=== PATIENT | male | born 1980 | race Caucasian/White ===

== ENCOUNTER 2016-11-14 20:18 | Inpatient (IN) | payer MEDICAID ==
[~2016-11-14] VITALS: Ht 167.6 cm; Wt 96.2 kg
[~2016-11-14 20:18] MED LIST: LORA1TAB PO
[2016-11-14] MEDS ORDERED: ONDANSETRON 4 MG INJ IV STA (20:35)
[2016-11-14] MEDS ORDERED: ASPIRIN 325 MG TAB PO STA (20:35)
[2016-11-14] MEDS ORDERED: NITROGLYCERIN 2% 1 GM OINT PKT TD STA (20:35)
[2016-11-14] MEDS ORDERED: morphine 4 MG/ML VIAL IV STA (20:35)
--- NOTE | 2016-11-14 20:46 | ERA ---
ER Documentation Chief Complaint Date/Time DATE: 11/14/16 TIME: 20:42 Chief Complaint LEFT CHEST PAIN RADIATING TO BACK X 2 HRS WITH GRADUAL ONSET. HPI 36-year-old male who presents to the emergency room with left-sided chest pain that he describes as squeezing and pressure-like radiating to the left shoulder. He denies any central back pain. He describes gradual onset for several hours. No associated shortness of breath or pleuritic pain. No numbness or tingling or paresthesias. The patient states that he drinks alcohol but does not have a history of cardiac disease or family history of early cardiac disease. EKG at triage was abnormal and the patient was taken directly to room 1. ROS All systems reviewed and are negative except as per history of present illness. Medications Home Meds Reported Medications Lorazepam* (Lorazepam*) 1 Mg Tablet, 1 MG PO Q8 Y for ANXIETY, TAB 03/17/15 PMhx/Soc History of Surgery: No Anesthesia Reaction: No Hx Neurological Disorder: No Hx Respiratory Disorders: No Hx Cardiac Disorders: No Hx Psychiatric Problems: No Hx Miscellaneous Medical Probl: Yes (anxiety) Hx Alcohol Use: No Hx Substance Use: No Hx Tobacco Use: No FmHx Family History: No diabetes Physical Exam Vitals Vital Signs Date Time Temp Pulse Resp B/P Pulse Ox O2 Delivery O2 Flow Rate FiO2 11/14/16 22:39 98.6 80 16 105/76 Room Air 11/14/16 20:46 98.4 85 16 125/83 98 Room Air 11/14/16 20:20 96.2 89 22 124/92 97 Physical Exam General: Well developed, well nourished, no acute distress Head: Normocephalic, atraumatic. Eyes: Pupils equally reactive, EOM intact ENT: Moist mucous membranes Neck: Supple, no lymphadenopathy Respiratory: Lungs clear bilaterally, no distress Cardiovascular: RRR, no murmurs, rubs, or gallops Abdominal: Soft, non-tender, non-distended, no peritoneal signs : Deferred MSK: No edema, no unilateral swelling, 5/5 strength, no pulse deficits Neurologic: Alert and oriented, moving all extremities, normal speech, no focal weakness, no cerebellar signs Skin: No rash Psych: Normal mood Result Diagram: 6/4/17 2042 6/4/17 2042 Results 24 hrs Laboratory Tests Test 11/14/16 20:42 White Blood Count 10.010^3/ul Red Blood Count 4.8310^6/ul Hemoglobin 14.4g/dl Hematocrit 41.8% Mean Corpuscular Volume 86.5fl Mean Corpuscular Hemoglobin 29.8pg Mean Corpuscular Hemoglobin Concent 34.4g/dl Red Cell Distribution Width 13.2% Platelet Count 27969^3/UL Mean Platelet Volume 9.7fl Neutrophils % 63.9% Lymphocytes % 27.8% Monocytes % 6.4% Eosinophils % 1.3% Basophils % 0.3% Nucleated Red Blood Cells % 0.0/100WBC Neutrophils # 6.410^3/ul Lymphocytes # 2.810^3/ul Monocytes # 0.610^3/ul Eosinophils # 0.110^3/ul Basophils # 0.010^3/ul Nucleated Red Blood Cells # 0.010^3/ul Prothrombin Time 12.7Sec Prothrombin Time Ratio 1.0 INR International Normalized Ratio 0.95 Activated Partial Thromboplast Time 30.5Sec Sodium Level 139mmol/L Potassium Level 4.0mmol/L Chloride Level 104mmol/L Carbon Dioxide Level 24mmol/L Anion Gap 15 Blood Urea Nitrogen 16mg/dl Creatinine 0.93mg/dl Glucose Level 97mg/dl Calcium Level 9.6mg/dl Troponin I < 0.012ng/ml Current Medications Medications (Trade) Dose Ordered Sig/Jenaro Route PRN Reason Start Time Stop Time Status Last Admin Dose Admin Aspirin (Aspirin) 325 mg ONCE STAT PO 11/14/16 20:35 11/14/16 20:36 DC 11/14/16 20:35 Nitroglycerin (Nitroglycerin 2% Oint) 1 inch ONCE STAT TD 11/14/16 20:35 11/14/16 20:36 DC 11/14/16 20:56 Morphine Sulfate (morphine) 4 mg ONCE STAT IV 11/14/16 20:35 11/14/16 20:36 DC 11/14/16 20:56 Ondansetron HCl (Zofran Inj) 4 mg ONCE STAT IV 11/14/16 20:35 11/14/16 20:36 DC 11/14/16 20:56 IV Flush 10 ml 10 ml STK-MED ONCE .ROUTE 11/14/16 22:06 11/14/16 22:07 DC Sodium Chloride 100 ml @ ud STK-MED ONCE .ROUTE 11/14/16 22:06 11/14/16 22:07 DC Iohexol (Omnipaque) 100 ml @ ud STK-MED ONCE .ROUTE 11/14/16 22:06 11/14/16 22:07 DC Ondansetron HCl (Zofran Inj) 4 mg ER BRIDGE PRN IV NAUSEA AND/OR VOMITING 11/14/16 23:00 11/15/16 22:59 Acetaminophen (Tylenol Tab) 650 mg ER BRIDGE PRN PO MILD PAIN/FEVER 11/14/16 23:00 11/15/16 22:59 Procedures/MDM EKG, MONITORS, & DIAGNOSTIC IMAGING: EKG: I reviewed and interpreted a 12-lead EKG. Rhythm: Normal sinus rhythm Ectopy: None Intervals: No abnormalities ST segments: No elevations or depressions T waves: Significant T-wave inversion in lead II and III no reciprocal changes Repeat EKG: EKG: I reviewed and interpreted a 12-lead EKG. Rhythm: Normal sinus rhythm Ectopy: None Intervals: No abnormalities ST segments: No elevations or depressions T waves: Significant T-wave inversion in lead II and III, no reciprocal changes Chest x-ray: I reviewed and interpreted a 1 view of the chest Mediastinum: No enlargement Cardiac silhouette: No cardiomegaly Airspace: Clear lung johnston bilaterally without evidence of pneumothorax Bones: No evidence of fracture CTA chest: Negative for dissection or PE LAB INTERPRETATION: Negative troponin MEDICAL DECISION MAKING: The patient's history, physical exam and clinical presentation is concerning for possible cardiogenic etiology and acute coronary syndrome. The patient did have an abnormal EKG at triage that the machine read as meet STEMI criteria. However, the patient's EKG was not consistent with ST elevation myocardial infarction. Although, the patient did have significant T-wave inversion in the inferior leads. This is nonspecific however I cannot rule out cardiac process. The patient also has a back pain component but has no significant risk factors for dissection. However, cardiac ischemia would be unlikely in this otherwise healthy 36-year-old male. Therefore a CTA of the chest will be ordered. Based on the patient's clinical exam and history and risk factors, I have a much lower clinical concern for pulmonary embolism, acute aortic dissection, pneumothorax, pneumonia, cardiac tamponade HEART Score: 3 MACE Rate: 1.7% Shared Decision Making: We had a conversation regarding risk stratification, MACE rate, and the risks, benefits, alternatives of disposition planning options. Disposition planning: Given the patient's abnormal EKG and presentation of chest pain I would strongly recommend hospitalization. ER COURSE: Nitroglycerin and morphine provided. Aspirin held until negative CT. Pain improved and now asymptomatic. I kept the patient and/or family informed of laboratory and diagnostic imaging results throughout the emergency room course. DISPOSITION PLAN: Telemetry admission for abnormal EKG and chest pain to rule out acute coronary syndrome CONSULTATION: Accepting care team and consultations: I discussed the current laboratory data, diagnostic imaging and emergency care provided. Admitting team: Dr. Platt Admitting team indication: Insurance directed Departure Diagnosis: Primary Impression: Chest pain Qualified Code: R07.9 - Chest pain, unspecified type Condition: Stable FATOU JUAREZ MD Nov 14, 2016 20:46
[2016-11-14 20:52] LABS: ADD SCAN DIFF NO
[2016-11-14 20:53] LABS: BASOPHILS % 0.3 % (0.0-2.0); EOSINOPHILS # 0.1 10^3/ul (0.0-0.5); EOSINOPHILS % 1.3 % (0.0-7.0); HEMATOCRIT 41.8 % (42.0-52.0); HEMOGLOBIN 14.4 g/dl (14.0-18.0); LYMPHOCYTES # 2.8 10^3/ul (0.8-2.9); LYMPHOCYTES % 27.8 % (15.0-51.0); MEAN CORPUSCULAR HEMOGLOBIN 29.8 pg (29.0-33.0); MEAN CORPUSCULAR HGB CONC 34.4 g/dl (32.0-37.0); MEAN CORPUSCULAR VOLUME 86.5 fl (82.0-101.0); MEAN PLATELET VOLUME 9.7 fl (7.4-10.4); MONOCYTE # 0.6 10^3/ul (0.3-0.9); MONOCYTES % 6.4 % (0.0-11.0); NEUTROPHIL # 6.4 10^3/ul (1.6-7.5); NEUTROPHILS % 63.9 % (39.0-77.0); PLATELET COUNT 262 10^3/UL (140-415); RED BLOOD COUNT 4.83 10^6/ul (4.70-6.10); RED CELL DISTRIBUTION WIDTH 13.2 % (11.5-14.5)
[2016-11-14 21:10] LABS: INR 0.95; PARTIAL THROMBOPLASTIN TIME 30.5 Sec (25.0-35.0); PROTIME 12.7 Sec (12.2-14.2)
[2016-11-14 21:13] LABS: ANION GAP 15 (8-16); BLOOD UREA NITROGEN 16 mg/dl (7-20); CALCIUM 9.6 mg/dl (8.4-10.2); CARBON DIOXIDE 24 mmol/L (21-31); CHLORIDE 104 mmol/L (97-110); CREATININE 0.93 mg/dl (0.61-1.24); GLUCOSE 97 mg/dl (70-220); SODIUM 139 mmol/L (135-144)
[2016-11-14 21:24] LABS: TROPONIN-I < 0.012 ng/ml (0.00-0.12)
[2016-11-14] MEDS ORDERED: SOD CHLORIDE 0.9% 100 ML ONE (22:06)
[2016-11-14] MEDS ORDERED: IOHEXOL 100 ML ONE (22:06)
--- NOTE | 2016-11-14 22:40 | RADRPT ---
PROCEDURE: Chest. CLINICAL INDICATION: Chest pain. TECHNIQUE: Single frontal view of the chest was obtained. COMPARISON: 10/05/2015. FINDINGS: The cardiac silhouette is within normal limits. The aortic arch is unremarkable. There is no focal consolidation, vascular congestion or pleural effusion. There is no pneumothorax. IMPRESSION: No evidence for active cardiopulmonary disease. .Diego Solano MD, Date Time Electronically viewed and signed by .Diego Solano MD, on 11/14/2016 22:40 .T/
--- NOTE | 2016-11-14 22:53 | RADRPT ---
PROCEDURE: CT angiography of the chest with contrast. CLINICAL INDICATION: Chest pain, evaluate for pulmonary embolism TECHNIQUE: Contrast enhanced angiography of the chest was performed on a high resolution multi det richard scanner during the administration of intravenous contrast. Multiplanar reconstructions, three- dimensional reconstructions, as well as maximal intensity projection images are produced and reviewe d. One or more of the following dose reduction techniques were used: Automated exposure control; Adj ustment of the mA and/or kV according to patient size; Use of iterative reconstruction technique. CT DI = 17, 112 mGy. DLP = 678 mGy-cm. CONTRAST: 100 ml Omnipaque 350 administered without adverse event. COMPARISON: Chest radiograph 11/14/2016 FINDINGS: Evaluation is degraded due to patient respiratory motion artifact and loss of intravenous access mid injection. No evidence of central pulmonary embolism. Segmental and subsegmental branches are not adequately enhanced to exclude the presence of pulmonary emboli. Ventilation-perfusion scanning ma y be useful for further evaluation. Pulmonary artery configuration: Normal caliber. Degraded enhancement with peak Hounsfield units of 165. Lung parenchyma: No acute air space infiltrates. Mild dependent atelectasis in the lung bases. Airways: Mild peribronchial thickening suggestive of small airways disease. Aorta: Ungated examination demonstrates normal caliber. Bovine branching pattern is noted. No eviden ce of intramural hematoma or dissection. No evidence of significant atherosclerotic changes. Thoracic veins: Normal appearance for the phase of enhancement. Heart: Ungated examination demonstrates no significant abnormality. Mediastinum: Normal. Lymph nodes: No mediastinal, hilar, or axillary lymphadenopathy Osseous structures: Intact. Visualized upper abdomen: No abnormalities IMPRESSION: Evaluation is degraded due to patient respiratory motion artifact and loss of intravenous access mid injection. No evidence of central pulmonary embolism. Segmental and subsegmental branches are not adequately enhanced to exclude the presence of pulmonary emboli. Ventilation-perfusion scanning ma y be useful for further evaluation. No acute air space infiltrates or acute osseous abnormalities. RPTAT: AADD .Noel Hernandez MD, Date Time Electronically viewed and signed by .Noel Hernandez MD, on 11/14/2016 22:53 .B/
[2016-11-14] MEDS ORDERED: ONDANSETRON 4 MG INJ IV PRN (23:00)
[2016-11-14 23:26] VITALS: TEMP 98.3
[2016-11-15] VITALS (12 sets, daily range): BP systolic 105–137; BP diastolic 58–75; PULSE 62–99; RESP 16–18; Ht 167.6 cm; Wt 96.2 kg
[2016-11-15] MEDS ORDERED: NITROGLYCERIN (SL) 0.4 MG TAB SL PRN (00:30)
[2016-11-15] MEDS ORDERED: ACETAMINOPHEN 325 MG TAB PO PRN (00:30)
[2016-11-15] MEDS ORDERED: morphine 2 MG INJ IV PRN (00:30)
[2016-11-15] MEDS: ACETAMINOPHEN 325 MG TAB PO PRN ×2 (02:31→02:32)
[2016-11-15 04:13] LABS: ADD SCAN DIFF NO
[2016-11-15 04:16] LABS: BASOPHILS % 0.4 % (0.0-2.0); EOSINOPHILS # 0.2 10^3/ul (0.0-0.5); EOSINOPHILS % 2.7 % (0.0-7.0); HEMATOCRIT 37.7 % (42.0-52.0); HEMOGLOBIN 13.2 g/dl (14.0-18.0); LYMPHOCYTES # 3.2 10^3/ul (0.8-2.9); LYMPHOCYTES % 42.5 % (15.0-51.0); MEAN CORPUSCULAR HEMOGLOBIN 30.5 pg (29.0-33.0); MEAN CORPUSCULAR VOLUME 87.1 fl (82.0-101.0); MEAN PLATELET VOLUME 9.5 fl (7.4-10.4); MONOCYTE # 0.5 10^3/ul (0.3-0.9); MONOCYTES % 7.2 % (0.0-11.0); NEUTROPHIL # 3.5 10^3/ul (1.6-7.5); NEUTROPHILS % 46.8 % (39.0-77.0); PLATELET COUNT 235 10^3/UL (140-415); RED BLOOD COUNT 4.33 10^6/ul (4.70-6.10); RED CELL DISTRIBUTION WIDTH 13.2 % (11.5-14.5); WHITE BLOOD COUNT 7.5 10^3/ul (4.8-10.8)
[2016-11-15 04:33] LABS: ALBUMIN 4.4 g/dl (3.3-4.9); ALBUMIN/GLOBULIN RATIO 1.57; BILIRUBIN,INDIRECT 0.4 mg/dl (0-1.1); BILIRUBIN,TOTAL 0.4 mg/dl (0.2-1.3); CALCIUM 9.2 mg/dl (8.4-10.2); CREATININE 0.88 mg/dl (0.61-1.24); PHOSPHORUS 4.9 mg/dl (2.5-4.9); POTASSIUM 4.3 mmol/L (3.5-5.1); TOTAL PROTEIN 7.2 g/dl (6.1-8.1)
[2016-11-15 04:34] LABS: CHOL/HDL RATIO 4.2 RATIO
[2016-11-15 04:39] LABS: CREATINE KINASE 217 IU/L (23-200)
[2016-11-15 04:59] LABS: CK-MB 1.08 ng/ml (0.0-2.4); TROPONIN-I < 0.012 ng/ml (0.00-0.12)
[2016-11-15 05:03] LABS: THYROID STIMULATING HORMONE 4.3 MIU/L (0.465-4.680)
[2016-11-15] MEDS: ENOXAPARIN 40 MG/0.4 ML SYG SC SCH ×2 (06:31→21:45)
--- NOTE | 2016-11-15 07:45 | HP ---
DATE OF ADMISSION: 11/14/2016 TIME SEEN: 23:00 CHIEF COMPLAINT: Chest pain. HISTORY OF PRESENT ILLNESS: The patient is a 36-year-old male with a history of a history of anxiet y and substance abuse who presented to the emergency department with chief complaint of chest pain. Chest pain is mainly left-sided, was radiating to his upper back and left shoulder and started bipin ral hours prior to arrival. He denied any associated shortness of breath, nausea, vomiting or diaph oresis. When he presented to the ER, his vitals were stable. Initial EKG shows T-wave inversion in leads 2 and 3 with reciprocal change. Laboratory value shows that his first troponin is negative and CBC an d BMP are unremarkable. Chest x-ray shows no evidence of acute cardiopulmonary disease. CT pulmona ry angiogram shows no PE. He was given aspirin, nitro, morphine, Zofran as well as IV fluid while henny reyez was in the ER. The patient was last seen here in the ER a year ago after he presented with left-sided pressure-like chest pain as well as generalized body aches. At that time, he reports that he has been drinking a lcohol and also doing cocaine again. REVIEW OF SYSTEMS: A 12-point review of systems was performed and negative except as mentioned in H PI. PAST MEDICAL HISTORY: Anxiety. PAST SURGICAL HISTORY: Denies. SOCIAL HISTORY: Positive for alcohol as well as cocaine. Denied smoking cigarettes. ALLERGIES: NO KNOWN DRUG ALLERGIES. HOME MEDICATIONS: Ativan. PHYSICAL EXAMINATION: VITAL SIGNS: Stable. GENERAL: No acute distress, answering questions appropriately, able to speak in full sentences. HEENT: Normocephalic, atraumatic. Extraocular muscles intact. No scleral icterus. CARDIOVASCULAR: Regular rate and rhythm with no extra sounds. LUNGS: Clear. ABDOMEN: Soft, nontender, nondistended. Positive bowel sounds. EXTREMITIES: No edema. NEUROLOGIC: No focal deficit. LABORATORY DATA: CBC and BMP are unremarkable. First troponin is negative. IMAGING: Chest x-ray: No acute disease. CT pulmonary angiogram: No pulmonary embolus. IMPRESSION: 1. Chest pain with abnormal EKG. 2. History of anxiety. 3. History of alcohol and cocaine abuse. PLAN: Continue telemetry monitoring. We will trend his troponin. We will repeat EKG in the [facility]. We will obtain a 2D echo and place a cardiology consult. He will be placed on oxygen and will p rovide as needed nitro and morphine. His blood pressure at times has been in the low 100s and heart rate has been as low as 62 and as such, would not allow a beta nneka. Also, given his history of cocaine use I am reluctant to start him on a beta nneka, but will probably do so with a lower dos e if his vitals allow. Will check A1c, fasting lipids, and also urine toxicology screen. Further workup and management per clinical course. Dictated By: CHINMAY MARINO/NOELLE Conf#: [id number] DID#: [id number]
[2016-11-15] MEDS: METOPROLOL 25 MG TAB PO SCH ×2 (08:29→21:51)
[2016-11-15 10:56] LABS: CREATINE KINASE 218 IU/L (23-200)
[2016-11-15 11:11] LABS: CK-MB 0.97 ng/ml (0.0-2.4); TROPONIN-I < 0.012 ng/ml (0.00-0.12)
[2016-11-15 12:44] LABS: BARBITURATES Negative (NEGATIVE); BENZODIAZEPINES Negative (NEGATIVE); CANNABINOIDS Negative (NEGATIVE); COCAINE Positive (NEGATIVE); OPIATES Positive (NEGATIVE)
--- NOTE | 2016-11-15 15:44 | PN ---
Date/Time of Note Date/Time of Note DATE: 11/15/16 TIME: 15:41 Assessment/Plan VTE Prophylaxis VTE Prophylaxis Intervention: LMWH Lines/Catheters IV Catheter Type (from Nrs): Saline Lock Urinary Cath still in place: No Assessment/Plan Assessment/Plan 1. Chest pain with abnormal EKG., negative troponin, cardiology consultation 2. History of anxiety. 3. History of alcohol and cocaine abuse. 4. Hypertriglyceridemia Subjective 24 Hr Interval Summary Free Text/Dictation no chest pain or shortness of breath Exam/Review of Systems Vital Signs Vitals Vital Signs Date Time Temp Pulse Resp B/P Pulse Ox O2 Delivery O2 Flow Rate FiO2 11/15/16 13:03 65 11/15/16 11:21 98.7 18 105/58 96 11/14/16 23:26 Room Air Intake and Output 11/14/16 11/14/16 11/15/16 15:00 23:00 07:00 Intake Total 250 ml Balance 250 ml Exam Constitutional: alert, oriented, well developed Psych: nl mood/affect, no complaints Head: atraumatic, normocephalic Eyes: EOMI, PERRL, nl conjunctiva, nl lids ENMT: nl external ears & nose, nl lips & teeth, nl nasal mucosa & septum Neck: non-tender, supple Respiratory: clear to auscultation, normal air movement, No congested cough, No crackles/rales, No diminished breath sounds, No intercostal retraction, No labored breathing, No other, No respirations, No tactile fremitus, No wheezing Cardiovascular: nl pulses, regular rate and rhythm, No S3, No S4, No bruits, No diastolic murmur, No edema, No gallop, No irregular rhythm, No jugular venous distention (JVD), No murmurs/extra sounds, No other, No rub, No systolic murmur Gastrointestinal: nl liver, spleen, non-tender, soft, No ascites, No bowel sounds, No distended, No firm, No hepatomegaly, No mass , No other, No rebound or guarding, No splenomegaly, No surgical scars, No tender Musculoskeletal: nl extremities to inspection Extremities: normal pulses, No calf tenderness, No clubbing, No cyanosis, No edema, No other, No palpable cord, No pitting pedal edema, No tenderness Neurological: [employer] II-XII intact, nl mental status, nl speech, nl strength Skin: nl turgor Lymph: nl lymph nodes Results Result Diagram: 11/15/16 0358 11/15/16 0358 Results 24 hrs Laboratory Tests Test 11/14/16 20:42 11/15/16 03:58 11/15/16 09:10 11/15/16 10:00 White Blood Count 10.0 7.5 # Red Blood Count 4.83 4.33 L Hemoglobin 14.4 13.2 L Hematocrit 41.8 L 37.7 L Mean Corpuscular Volume 86.5 87.1 Mean Corpuscular Hemoglobin 29.8 30.5 Mean Corpuscular Hemoglobin Concent 34.4 35.0 Red Cell Distribution Width 13.2 13.2 Platelet Count 262 235 Mean Platelet Volume 9.7 9.5 Neutrophils % 63.9 46.8 Lymphocytes % 27.8 42.5 Monocytes % 6.4 7.2 Eosinophils % 1.3 2.7 Basophils % 0.3 0.4 Nucleated Red Blood Cells % 0.0 0.0 Neutrophils # 6.4 3.5 Lymphocytes # 2.8 3.2 H Monocytes # 0.6 0.5 Eosinophils # 0.1 0.2 Basophils # 0.0 0.0 Nucleated Red Blood Cells # 0.0 0.0 Prothrombin Time 12.7 Prothrombin Time Ratio 1.0 INR International Normalized Ratio 0.95 Activated Partial Thromboplast Time 30.5 Sodium Level 139 140 Potassium Level 4.0 4.3 Chloride Level 104 105 Carbon Dioxide Level 24 25 Anion Gap 15 14 Blood Urea Nitrogen 16 16 Creatinine 0.93 0.88 Glucose Level 97 92 Calcium Level 9.6 9.2 Troponin I < 0.012 < 0.012 < 0.012 Hemoglobin A1c 5.8 Phosphorus Level 4.9 Magnesium Level 2.0 Total Bilirubin 0.4 Direct Bilirubin 0.00 Indirect Bilirubin 0.4 Aspartate Amino Transf (AST/SGOT) 47 H Alanine Aminotransferase (ALT/SGPT) 63 Alkaline Phosphatase 83 Creatine Kinase 217 H 218 H Creatine Kinase Index 0.5 0.4 Creatinine Kinase MB (Mass) 1.08 0.97 Total Protein 7.2 Albumin 4.4 Globulin 2.80 Albumin/Globulin Ratio 1.57 Triglycerides Level 346 H Cholesterol Level 206 H LDL Cholesterol, Calculated 88 HDL Cholesterol 49 Cholesterol/HDL Ratio 4.2 Thyroid Stimulating Hormone (TSH) 4.300 Urine Opiates Screen Positive Urine Barbiturates Negative Urine Amphetamines Screen Negative Urine Benzodiazepines Screen Negative Urine Cocaine Screen Positive Urine Cannabinoids Negative Medications Medications Current Medications Acetaminophen (Tylenol Tab) 650 mg Q6H PRN PO PAIN AND OR ELEVATED TEMP Last administered on 11/15/16 11:03; Admin Dose 650 MG; Start 11/15/16 at 00:30 Metoprolol Tartrate (Lopressor) 12.5 mg BID PO ; Start 11/15/16 at 09:00 Nitroglycerin (Nitroglycerin (Sl Tab) 0.4 Mg) 1 tab Q5M PRN SL ANGINA; Start at 00:30 Morphine Sulfate (morphine) 2 mg Q4H PRN IV PAIN; Start 11/15/16 at 00:30 Enoxaparin Sodium (Lovenox) 40 mg DAILY SC Last administered on 11/15/16 06:31 ; Admin Dose 40 MG; Start 11/15/16 at 00:30 CARON LAU MD Nov 15, 2016 15:44
--- NOTE | 2016-11-15 18:12 | RADRPT ---
Echocardiogram Report Patient Name: HAFSA HOWARD Gender: Male Date: 1980 Study Date: 15-Nov-2016 Customer Experience Associate: Amanda Anderson [facility] Location: [id number] Ref. Physician: CHINMAY HARRIS Quality: Good Procedures: Transthoracic echocardiogram with complete 2D, M-Mode, and doppler examination. Indications: Chest Pain. 2D/M Mode Doppler Measurement Value Normal Ranges Measurement Value Normal Ranges LVIDd 2D 5.0 3.5 - 5.6 cm AV Peak Karson 1.3 m/sec LVIDs 2D 3.2 2.1 - 4.1 cm AV Peak PG 7.0 mmHg FS 2D 36.9 % LVOT Peak Krason 0.8 m/sec LVPWd 2D 0.9 0.6 - 1.1 cm LVOT Peak PG 3.0 mmHg IVSd 2D 0.9 0.6 - 1.1 cm MV E Peak Karson 0.7 m/sec IVS/LVPW 2D 0.9 MV A Peak Karson 0.6 m/sec AoR Diam 2D 3.1 2.0 - 3.7 cm MV E/A 1.2 LA/Ao 2D 1 0 - 1 MV Decel Time 215 msec EDV 2D 128.0 cm3 MV E/A 1.2 ESV 2D 32.2 cm3 TR Peak Karson 1.9 m/sec LA Dimen 2D 3.1 2.3 - 4.0 cm TR Peak PG 15.0 mmHg RVSP 23.0 mmHg Findings Left Ventricle: Normal left ventricular systolic function. Normal left ventricular cavity size. Normal left ventricular wall thickness. Ejection fraction is visually estimated at 55 %. Right Ventricle: Normal right ventricular size. Normal right ventricular systolic function. Left Atrium: The left atrium is normal in size. Right Atrium: The right atrium is normal in size. Mitral Valve: Normal appearance and function of the mitral valve with trace physiologic regurgitation. Aortic Valve: Normal appearance of the aortic valve. No significant aortic stenosis or insufficiency. Tricuspid Valve: Normal appearance of the tricuspid valve. Estimated peak PA systolic pressure 23 mmHg. There is trace tricuspid regurgitation. Pulmonic Valve: Normal pulmonic valve appearance. There is trace pulmonic regurgitation. Pericardium: Normal pericardium with no significant pericardial effusion. Aorta: Normal aortic root. IVC: Dilated IVC with respiratory collapse consistent with elevated right atrial pressure. Conclusions 1.Normal left ventricular systolic function. Normal left ventricular cavity size. Normal left ventricular wall thickness. Ejection fraction is visually estimated at 55 %. 2.Normal appearance and function of the mitral valve with trace physiologic regurgitation. 3.Normal appearance of the aortic valve. No significant aortic stenosis or insufficiency. 4.Normal appearance of the tricuspid valve. Estimated peak PA systolic pressure 23 mmHg. There is trace tricuspid regurgitation. Electronically Signed By: Bruce Waldrop 15-Nov-2016 18:11:26 -0700 Patient Name: HAFSA HOWARD Study Date: 15-Nov-[id number]
[2016-11-15] MEDS: ASPIRIN (EC) 81 MG TAB PO SCH (21:44)
[2016-11-16] VITALS (8 sets, daily range): BP systolic 113–132; BP diastolic 70–77; PULSE 54–62; RESP 20
--- NOTE | 2016-11-16 07:08 | CONS ---
DATE OF ADMISSION: 11/14/2016 DATE OF CONSULTATION: 11/15/2016 TYPE OF CONSULTATION: Cardiology. REFERRING PHYSICIAN: ____. REASON FOR CONSULTATION: Chest pain, abnormal EKG. CHIEF COMPLAINT: Chest pain. HISTORY OF PRESENT ILLNESS: Thank you for this referral. History obtained from the patient, review of the chart, from discussion and review. Discussed with the staff. This is a 36-year-old gentlem an with history of cocaine and alcohol abuse who came to emergency room with above complaint. Patidereje nt said he used cocaine last night. He had chest pain anteriorly mostly on the left side. Pressure like. Could not explain ____ to me. At this point, he has minimal chest discomfort, left. His ca rdiac enzymes are negative. 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 The p brynn said he had chest pain similar to 3 months ago, was seen at [facility]. He is not sure what kind of workup was done then, but it appears that he did not have a stress test done at that time. PAST MEDICAL HISTORY: As above plus anxiety. SOCIAL HISTORY: The patient does use drugs including cocaine. The patient also uses alcohol. Micheal es any tobacco use. FAMILY HISTORY: No reported coronary artery disease. ALLERGIES: NO REPORTED ALLERGIES. MEDICATIONS AT HOME: None. REVIEW OF SYSTEMS: As above mentioned, denied all other. PHYSICAL EXAMINATION: VITAL SIGNS: Temperature 98, heart rate of 63, blood pressure 126/75, respiration rate of 18, satur ating 98%. HEENT: Normocephalic, atraumatic. Pupils are equal. CARDIOVASCULAR: Regular rate and rhythm, systolic murmur. PULMONARY: With no wheezes or rhonchi. GASTROINTESTINAL: Soft, nontender. EXTREMITIES: Trivial edema. NEUROLOGIC: Awake and alert. DERMATOLOGIC: There are multiple tattoos. NEUROLOGIC: Awake, alert x3, nonfocal. PSYCHIATRIC: Calm, pleasant. LABORATORY: Sodium 140, potassium 4.3, BUN of 16, creatinine 0.88, glucose of 92. Cholesterol 206, triglycerides 346, LDL 88, HDL 49. TSH is 4.3. Troponin negative x3. EKG was personally reviewed , showed normal sinus rhythm, inferior infarct, age undetermined. Echocardiogram was personally rev iewed, showed suboptimal study, but appeared to have ejection fraction of probably preserved at abou t 50%. CT pulmonary angiogram of the chest shows no evidence of pulmonary embolus. ASSESSMENT AND PLAN: 1. Chest pain syndrome, rule acute coronary syndrome. 2. Cocaine use. 3. Dyslipidemia, high triglyceride levels. 4. Anxiety. 5. Abnormal EKG. RECOMMENDATIONS: Patient has been placed already on beta nneka and aspirin. I will order a CT co ronary angiogram to rule out significant obstructive coronary artery disease if the patient agrees t o stay. Dictated By: LATHA SMITH MD AV/NOELLE Conf#: [id number] DID#: [id number] CC: CARON LAU MD;*EndCC*
[2016-11-16 07:34] LABS: ALBUMIN 4.6 g/dl (3.3-4.9); ALBUMIN/GLOBULIN RATIO 1.53; BILIRUBIN,INDIRECT 0.3 mg/dl (0-1.1); BILIRUBIN,TOTAL 0.3 mg/dl (0.2-1.3); CALCIUM 8.9 mg/dl (8.4-10.2); CREATININE 0.89 mg/dl (0.61-1.24); POTASSIUM 4.3 mmol/L (3.5-5.1); TOTAL PROTEIN 7.6 g/dl (6.1-8.1)
[2016-11-16] MEDS: ASPIRIN (EC) 81 MG TAB PO SCH (08:05)
[2016-11-16] MEDS: METOPROLOL 25 MG TAB PO SCH (08:06)
[2016-11-16] MEDS: ENOXAPARIN 40 MG/0.4 ML SYG SC SCH (08:10)
[2016-11-16 09:55] LABS: CREATINE KINASE 140 IU/L (23-200)
[2016-11-16 10:09] LABS: CK-MB 0.47 ng/ml (0.0-2.4); TROPONIN-I < 0.012 ng/ml (0.00-0.12)
[2016-11-16] MEDS ORDERED: NITROGLYCERIN AEROSOL (4.9 GM) ONE (12:12)
[2016-11-16] MEDS ORDERED: IOHEXOL 350MG/ML 50 ML BTL ONE (12:20)
[2016-11-16] MEDS ORDERED: IOHEXOL 100 ML ONE (12:20)
[2016-11-16] MEDS ORDERED: SOD CHLORIDE 0.9% 100 ML ONE (12:20)
--- NOTE | 2016-11-16 14:30 | RADRPT ---
PROCEDURE: CTA OF THE HEART AND CORONARY ARTERIES WITH CONTRAST CT CALCIUM SCORE CLINICAL INDICATION: Chest pain COMPARISON: CT scan of the chest 11/14/2016 TECHNIQUE: CT calcium score performed without intravenous contrast. Multiphasic ECG-gated volumetri c acquisition from the ascending aorta to the diaphragm performed with intravenous contrast on a hig h-resolution multi detector scanner with multiphasic reconstructions. Multiplanar reconstructions, t hree-dimensional reconstructions, as well as maximal intensity projection images are produced and re viewed. One or more of the following dose reduction techniques were used: Automated exposure control ; Adjustment of the mA and/or kV according to patient size; Use of iterative reconstruction techniqu e; ECG dose modulation. CTDI = 8, 34, 75 mGy. DLP = 1520 mGy-cm. Stenosis classification of vessels greater than 1.5 mm in diameter: None0% Minimal1-24% Zlsf23-92% Wrcdxthm38-71% Hivsbs81-86% [id number]% (When a vessel appears focally occluded with distal reconstitution there may be trac e patency which is below the resolution of the examination or collateral pathways may exist.) CONTRAST: 100 mL of Omnipaque 350 intravenously without adverse event. FINDINGS: CORONARY CT ANGIOGRAM: Overall quality of the CT angiographic examination is excellent. Normal origins of the coronary arteries are present. The coronary artery system is right dominant. Total calcium score: 0 Right Coronary Artery: Widely patent without focal irregularity, mural plaque, or significant stenos is. The acute marginal branch enhances normally. Posterior descending and posterior lateral coronary artery branches are widely patent. Left Main Coronary Artery: Widely patent without focal irregularity, mural plaque, or significant st enosis. A small ramus intermedius branch is present which is widely patent. Left Anterior Descending Coronary Artery: Widely patent without focal irregularity, mural plaque, or significant stenosis. Visualized septal and diagonal branches: Widely patent without focal irregularity, mural plaque, or significant stenosis. Left Circumflex Coronary Artery: Widely patent without focal irregularity, mural plaque, or signific ant stenosis. Visualized obtuse marginal branches: Widely patent throughout, without focal significant stenosis. Normal appearance of the pericardium. No pericardial effusion. Normal appearing trileaflet aortic valve. Normal appearance of the mitral valve. Myocardial attenuation appears within normal limits. Left atrial appendage is well opacified. No evidence of intracardiac mass or thrombus. EXTRACARDIAC FINDINGS: Thoracic aorta: Normal caliber. Pulmonary vessels: Normal caliber pulmonary arteries. No evidence of central filling defect. Conven tional pulmonary venous return. Chest: Minimal linear opacity observed within the lingula appears improved from the previous examina tion. No mediastinal lymphadenopathy. Abdomen: Incidental imaging of the upper abdomen is unremarkable. IMPRESSION: Total calcium score: 0 Right Coronary Artery: Widely patent without focal irregularity, mural plaque, or significant stenos is. Left Main Coronary Artery: Widely patent without focal irregularity, mural plaque, or significant st enosis. Left Anterior Descending Coronary Artery: Widely patent without focal irregularity, mural plaque, or significant stenosis. Left Circumflex Coronary Artery: Widely patent without focal irregularity, mural plaque, or signific ant stenosis. RPTAT: AADD .Noel Hernandez MD, MD Date Time Electronically viewed and signed by .Noel Hernandez MD, on 11/16/2016 14:30 .B/
--- NOTE | 2016-11-16 15:02 | DS ---
Date/Time of Note Date/Time of Note DATE: 11/16/16 TIME: 14:53 Discharge Summary Admission/Discharge Info Admit Date/Time Nov 14, 2016 at 22:53 Discharge Date/Time Final Diagnosis 1. Chest pain, musculoskeletal, resolved 2. History of anxiety. 3. History of alcohol and cocaine abuse. 4. Hypertriglyceridemia, follow with PCP Patient Condition: Stable Procedures [place] [id number] Radiology Main Line: [phone] DIAGNOSTIC IMAGING REPORT Patient: HAFSA HOWARD : 1980 Age: 36 Sex: M MR #: [id number] DOS: 11/14/162042 Ordering MD: FATOU JUAREZ MD Location: E/R Room/Bed: PROCEDURE: CT angiography of the chest with contrast. CLINICAL INDICATION: Chest pain, evaluate for pulmonary embolism TECHNIQUE: Contrast enhanced angiography of the chest was performed on a high resolution multi detector scanner during the administration of intravenous contrast. Multiplanar reconstructions, three-dimensional reconstructions, as well as maximal intensity projection images are produced and reviewed. One or more of the following dose reduction techniques were used: Automated exposure control; Adjustment of the mA and/or kV according to patient size; Use of iterative reconstruction technique. CTDI = 17, 112 mGy. DLP = 678 mGy-cm. CONTRAST: 100 ml Omnipaque 350 administered without adverse event. COMPARISON: Chest radiograph 11/14/2016 FINDINGS: Evaluation is degraded due to patient respiratory motion artifact and loss of intravenous access mid injection. No evidence of central pulmonary embolism. Segmental and subsegmental branches are not adequately enhanced to exclude the presence of pulmonary emboli. Ventilation-perfusion scanning may be useful for further evaluation. Pulmonary artery configuration: Normal caliber. Degraded enhancement with peak Hounsfield units of 165. Lung parenchyma: No acute air space infiltrates. Mild dependent atelectasis in the lung bases. Airways: Mild peribronchial thickening suggestive of small airways disease. Aorta: Ungated examination demonstrates normal caliber. Bovine branching pattern is noted. No evidence of intramural hematoma or dissection. No evidence of significant atherosclerotic changes. Thoracic veins: Normal appearance for the phase of enhancement. Heart: Ungated examination demonstrates no significant abnormality. Mediastinum: Normal. Lymph nodes: No mediastinal, hilar, or axillary lymphadenopathy Osseous structures: Intact. Visualized upper abdomen: No abnormalities IMPRESSION: Evaluation is degraded due to patient respiratory motion artifact and loss of intravenous access mid injection. No evidence of central pulmonary embolism. Segmental and subsegmental branches are not adequately enhanced to exclude the presence of pulmonary emboli. Ventilation-perfusion scanning may be useful for further evaluation. No acute air space infiltrates or acute osseous abnormalities. RPTAT: AADD .Noel Hernandez MD, MD Date Time Electronically viewed and signed by .Noel Hernandez MD, on 11/14/2016 22:53 .[place] [id number] Radiology Main Line: [phone] DIAGNOSTIC IMAGING REPORT Patient: HAFSA HOWARD : 1980 Age: 36 Sex: M MR #: [id number] DOS: 11/16/16 0000 Ordering MD: LATHA SMITH [place] [facility] [place] [facility] PROCEDURE: CTA OF THE HEART AND CORONARY ARTERIES WITH CONTRAST CT CALCIUM SCORE CLINICAL INDICATION: Chest pain COMPARISON: CT scan of the chest 11/14/2016 TECHNIQUE: CT calcium score performed without intravenous contrast. Multiphasic ECG-gated volumetric acquisition from the ascending aorta to the diaphragm performed with intravenous contrast on a high-resolution multi detector scanner with multiphasic reconstructions. Multiplanar reconstructions, three-dimensional reconstructions, as well as maximal intensity projection images are produced and reviewed. One or more of the following dose reduction techniques were used: Automated exposure control; Adjustment of the mA and/or kV according to patient size; Use of iterative reconstruction technique; ECG dose modulation. CTDI = 8, 34, 75 mGy. DLP = 1520 mGy-cm. Stenosis classification of vessels greater than 1.5 mm in diameter: None 0% Minimal 1-24% Mild 25-49% Moderate 50-69% Severe 70-99% Occluded 100% (When a vessel appears focally occluded with distal reconstitution there may be trace patency which is below the resolution of the examination or collateral pathways may exist.) CONTRAST: 100 mL of Omnipaque 350 intravenously without adverse event. FINDINGS: CORONARY CT ANGIOGRAM: Overall quality of the CT angiographic examination is excellent. Normal origins of the coronary arteries are present. The coronary artery system is right dominant. Total calcium score: 0 Right Coronary Artery: Widely patent without focal irregularity, mural plaque, or significant stenosis. The acute marginal branch enhances normally. Posterior descending and posterior lateral coronary artery branches are widely patent. Left Main Coronary Artery: Widely patent without focal irregularity, mural plaque, or significant stenosis. A small ramus intermedius branch is present which is widely patent. Left Anterior Descending Coronary Artery: Widely patent without focal irregularity, mural plaque, or significant stenosis. Visualized septal and diagonal branches: Widely patent without focal irregularity, mural plaque, or significant stenosis. Left Circumflex Coronary Artery: Widely patent without focal irregularity, mural plaque, or significant stenosis. Visualized obtuse marginal branches: Widely patent throughout, without focal significant stenosis. Normal appearance of the pericardium. No pericardial effusion. Normal appearing trileaflet aortic valve. Normal appearance of the mitral valve. Myocardial attenuation appears within normal limits. Left atrial appendage is well opacified. No evidence of intracardiac mass or thrombus. EXTRACARDIAC FINDINGS: Thoracic aorta: Normal caliber. Pulmonary vessels: Normal caliber pulmonary arteries. No evidence of central filling defect. Conventional pulmonary venous return. Chest: Minimal linear opacity observed within the lingula appears improved from the previous examination. No mediastinal lymphadenopathy. Abdomen: Incidental imaging of the upper abdomen is unremarkable. IMPRESSION: Total calcium score: 0 Right Coronary Artery: Widely patent without focal irregularity, mural plaque, or significant stenosis. Left Main Coronary Artery: Widely patent without focal irregularity, mural plaque, or significant stenosis. Left Anterior Descending Coronary Artery: Widely patent without focal irregularity, mural plaque, or significant stenosis. Left Circumflex Coronary Artery: Widely patent without focal irregularity, mural plaque, or significant stenosis. RPTAT: AADD .Noel Hernandez MD, MD Date Time Electronically viewed and signed by .Noel Hernandez MD, on 11/16/2016 14:30 .B/ CC: LATHA SMITH MD Hospital Course The patient is a 36-year-old male with a history of a history of anxiety and substance abuse who presented to the emergency department with chief complaint of chest pain. Chest pain is mainly left-sided, was radiating to his upper back and left shoulder and started several hours prior to arrival. He denied any associated shortness of breath, nausea, vomiting or diaphoresis. Chest [pain resolved after admission. Troponin negative. Echocardiography unremarkable. Patient has a negative coronary CT angiography. Chest pain is considered noncardiac. Triglyceride is 346. Low TG diet and follow up with PCP to repeat TG in 2-4 weeks Home Meds Reported Medications Lorazepam* (Lorazepam*) 1 Mg Tablet, 1 MG PO Q8 Y for ANXIETY, TAB 03/17/15 Follow-up Plan follow up with PCP in 2 weeks to repeat Lipid profile Primary Care Provider Care Physician No Primary Pending Labs Laboratory Tests Test 11/16/16 06:35 Sodium Level 141mmol/L (135-144) Potassium Level 4.3mmol/L (3.5-5.1) Chloride Level 104mmol/L (97-110) Carbon Dioxide Level 28mmol/L (21-31) Anion Gap 13 (8-16) Blood Urea Nitrogen 14mg/dl (7-20) Creatinine 0.89mg/dl (0.61-1.24) Glucose Level 101mg/dl (70-220) Calcium Level 8.9mg/dl (8.4-10.2) Total Bilirubin 0.3mg/dl (0.2-1.3) Direct Bilirubin 0.00mg/dl (0.00-0.20) Indirect Bilirubin 0.3mg/dl (0-1.1) Aspartate Amino Transf (AST/SGOT) 36IU/L (15-46) Alanine Aminotransferase (ALT/SGPT) 60IU/L (13-69) Alkaline Phosphatase 89IU/L (42-121) Creatine Kinase 140IU/L (23-200) Creatine Kinase Index 0.3 Creatinine Kinase MB (Mass) 0.47ng/ml (0.0-2.4) Troponin I < 0.012ng/ml (0.00-0.12) Total Protein 7.6g/dl (6.1-8.1) Albumin 4.6g/dl (3.3-4.9) Globulin 3.00g/dl (1.3-3.2) Albumin/Globulin Ratio 1.53 CARON LAU MD Nov 16, 2016 15:02
== END 2016-11-16 16:18 | disposition home or self-care (01) | DRG 313 ==
LOC: E/R 20:18 → MS4 22:53
PROVIDERS: ADMIT Internal Medicine; ATTEND Internal Medicine
DX: R07.89 Other chest pain (principal); F14.10 Cocaine abuse, uncomplicated; F41.9 Anxiety disorder, unspecified; F10.10 Alcohol abuse, uncomplicated; E78.1 Pure hyperglyceridemia; R94.31 Abnormal electrocardiogram [ECG] [EKG]
CPT/HCPCS: 36415; 71010; 71275; 75571; 75574; 80048; 80053; 80061; 80307; 82550; 82553; 83036; 83735; 84100; 84443; 84484; 85025; 85610; 85730; 93005; 93306; 96374; 96375; J1650; J2270; J2405; Q9967

== ENCOUNTER 2017-01-27 14:16 | Emergency (ER) | END 2017-01-27 15:51 | disposition home or self-care (01) | DX: F41.9 Anxiety disorder, unspecified (principal) | CPT/HCPCS: 80053; 84484; 85025; Z7502 ==

== ENCOUNTER 2017-08-22 14:41 | Emergency (ER) | END 2017-08-22 22:44 | disposition left against medical advice (07) ==

== ENCOUNTER 2017-08-23 08:54 | Emergency (ER) | END 2017-08-23 13:32 | disposition home or self-care (01) ==